=== PATIENT | male | born 1945 | race Caucasian/White ===

== ENCOUNTER 2018-11-23 00:41 | Emergency (ER) | payer MEDICARE, OTHER ==
[~2018-11-23] VITALS: Ht 170.2 cm; Wt 82.0 kg
[2018-11-23 01:14] LABS: BASOPHILS % 0.5 % (0.0-2.0); EOSINOPHILS % 1.1 % (0.0-5.0); HEMATOCRIT. 31.4 % (42.0-52.0); HEMOGLOBIN. 10.2 g/dL (14.0-18.0); LYMPHOCYTES % 38.2 % (20.0-50.0); MEAN CORPUSCULAR VOLUME 89.5 fL (80.0-94.0); MEAN PLATELET VOLUME 8.1 fl (7.4-10.4); MONOCYTES % 12.8 % (2.0-8.0); NEUTROPHILS % 47.4 % (40.0-76.0); PLATELET 227 x1000/uL (130-400); RED BLOOD CELL COUNT 3.51 mill/uL (4.7-6.1); RED CELL DISTRIBUTION WIDTH 17.3 % (11.6-14.6)
[2018-11-23 01:19] LABS: CHLORIDE 98 mEq/L (98-107)
[2018-11-23 01:21] LABS: PARTIAL THROMBOPLASTIN TIME 33.4 sec (23.4-31.0); PROTHROMBIN TIME 10.5 sec (9.6-11.0)
[2018-11-23] MEDS ORDERED: ALBUTEROL (0.083%) 2.5MG/3ML NEB HHN STA (02:19)
[2018-11-23 03:58] VITALS: BP 105/50
== END 2018-11-23 04:22 | disposition home or self-care (01) ==
LOC: ER 00:41 → CANBEDREQ 05:43
DX: J44.1 Chronic obstructive pulmonary disease with (acute) exacerbation (principal); I25.2 Old myocardial infarction; F17.200 Nicotine dependence, unspecified, uncomplicated
CPT/HCPCS: 36415; 71045; 80053; 83880; 84484; 85025; 85610; 85730; 93005; 94640; 99284; J7611

== ENCOUNTER 2019-01-18 00:05 | Inpatient (IN) | payer OTHER, MEDICAID ==
[2019-01-18] VITALS (33 sets, daily range): BP systolic 79–133; BP diastolic 39–80
[~2019-01-18] VITALS: Ht 172.7 cm; Wt 69.6 kg
[2019-01-18] MEDS ORDERED: METHYLPREDNISOLONE SOD SUCC 125 MG/2 ML VIAL IV STA (00:52)
[2019-01-18] MEDS ORDERED: ONDANSETRON HCL 4MG/2ML INJ IV STA (00:52)
[2019-01-18] MEDS ORDERED: IPRATROPIUM BROMIDE (0.02%) 0.5MG/2.5ML NEB HHN STA (00:52)
[2019-01-18] MEDS: ALBUTEROL (0.083%) 2.5MG/3ML NEB HHN SCH ×3 (01:12→01:49)
[2019-01-18 01:19] LABS: BASOPHILS % 0.5 % (0.0-2.0); EOSINOPHILS % 0.1 % (0.0-5.0); HEMATOCRIT. 31.8 % (42.0-52.0); HEMOGLOBIN. 10.2 g/dL (14.0-18.0); LYMPHOCYTES % 13.2 % (20.0-50.0); MEAN CORPUSCULAR HEMOGLOBIN 27.2 pg (28.0-32.0); MEAN CORPUSCULAR VOLUME 84.5 fL (80.0-94.0); MEAN PLATELET VOLUME 7.7 fl (7.4-10.4); MONOCYTES % 12.3 % (2.0-8.0); NEUTROPHILS % 73.9 % (40.0-76.0); PLATELET 372 x1000/uL (130-400); RED BLOOD CELL COUNT 3.77 mill/uL (4.7-6.1); RED CELL DISTRIBUTION WIDTH 16.5 % (11.6-14.6)
[2019-01-18 01:24] LABS: BG BASE EXCESS -0.8 mmol/L (-2.0-2.0); BG CARBOXYHEMOGLOBIN 1.3 % (0.5-1.5); BG FRACTION INSPIRED OXYGEN 40; BG HCO3 ACT 25.5 mmol/L (22.0-26.0); BG METHEMOGLOBIN 0.3 % (0.0-1.5); BG OXYHEMOGLOBIN 95.4 % (94.0-97.0); BG PCO2 49.4 mmHg (35.0-45.0); BG PH 7.331 (7.350-7.450); BG PO2 105.5 mmHg (75.0-100.0); BG SAMPLE SITE LEFT RADIAL; BG TOTAL HEMOGLOBIN 10.9 g/dL (12.0-18.0)
[2019-01-18 01:31] LABS: CHLORIDE 93 mEq/L (98-107)
[2019-01-18] MEDS ORDERED: CEFTRIAXONE 1 G PREMIX 50 ML IV ONE (02:30)
[2019-01-18] MEDS ORDERED: AZITHROMYCIN 500 MG in DEXT 5% WATER 250 ML IV ONE (02:30)
[2019-01-18] MEDS ORDERED: SODIUM CHLORIDE 0.9% 1000ML BAG (SEPSIS BOLUS) IV ONE (03:00)
[2019-01-18] MEDS ORDERED: NOREPINEPHRINE 4 MG in DEXT 5% WATER 250 ML IV STA (04:32)
[2019-01-18] MEDS: NOREPINEPHRINE 4MG/250ML PMX 250 ML IV PRN ×2 (05:03→05:28)
[2019-01-18] MEDS ORDERED: LORAZEPAM 0.5MG TABLET PO PRN (07:00)
[2019-01-18] MEDS ORDERED: LEVOFLOXACIN 500MG PREMIX 100 ML IV SCH (07:00)
[2019-01-18] MEDS ORDERED: DIPHENHYDRAMINE 50MG/ML VIAL IV PRN (07:00)
[2019-01-18] MEDS ORDERED: ONDANSETRON HCL 4MG/2ML INJ IV PRN (07:00)
[2019-01-18] MEDS ORDERED: MAGNESIUM/ALUMINUM HYDROXIDE/SIMETHICONE 30ML UDC PO PRN (07:00)
[2019-01-18] MEDS ORDERED: CLONIDINE 0.1MG TABLET PO PRN (07:00)
[2019-01-18] MEDS ORDERED: MORPHINE SULFATE 2 MG/ML CPJ (NOT FOR IM USE) IV PRN (07:00)
[2019-01-18] MEDS ORDERED: IPRATROPIUM/ALBUTEROL 0.5-3(2.5)MG/3ML NEB INH PRN (07:00)
[2019-01-18] MEDS ORDERED: NITROGLYCERIN 0.4MG TABLET SL SL PRN (07:00)
[2019-01-18] MEDS ORDERED: TRAMADOL 50MG TABLET PO PRN (07:00)
[2019-01-18] MEDS ORDERED: ZOLPIDEM TARTRATE 5MG TABLET PO PRN (07:00)
[2019-01-18] MEDS ORDERED: GUAIFENESIN 200MG/10ML SUGAR FREE UDC PO PRN (07:00)
[2019-01-18] MEDS ORDERED: ACETAMINOPHEN 325MG TABLET PO PRN (07:00)
[2019-01-18] MEDS ORDERED: DOCUSATE SODIUM 100MG CAPSULE PO PRN (07:00)
[2019-01-18 08:03] LABS: FOLIC ACID (FOLATE) SERUM 9.6 ng/mL (>5.38)
[2019-01-18] MEDS ORDERED: ENOXAPARIN 40MG/0.4ML SYR SUBCUT SCH (09:00)
[2019-01-18] MEDS ORDERED: METHYLPREDNISOLONE SOD SUCC 125 MG/2 ML VIAL IV SCH (09:00)
[2019-01-18] MEDS ORDERED: CEFTRIAXONE 1 G PREMIX 50 ML IV SCH (09:00)
[2019-01-18] MEDS: ASPIRIN 325MG EC TABLET PO SCH (09:48)
[2019-01-18] MEDS: GUAIFENESIN/DM 600MG/30MG ER TAB 12HR PO SCH ×2 (09:49→21:46)
[2019-01-18] MEDS: ASCORBIC ACID 500 MG TABLET PO SCH ×2 (09:49→21:46)
[2019-01-18] MEDS: FAMOTIDINE 20MG TABLET PO SCH ×2 (09:49→21:46)
[2019-01-18] MEDS: ZINC SULFATE 220 MG ( 50 ) CAPSULE PO SCH (09:49)
[2019-01-18] MEDS: SODIUM CHLORIDE 0.9% 1,000 ML IV SCH ×2 (10:46→22:27)
[2019-01-18] MEDS: LEVOFLOXACIN 500MG PREMIX 100 ML IV SCH (11:22)
[2019-01-18] MEDS: NICOTINE 14MG PATCH TD SCH (13:31)
[2019-01-18 14:44] LABS: CREATINE KINASE MB FRACTION 13.3 ng/mL (0.5-3.6)
[2019-01-18 19:22] LABS: INR 1.1; PROTHROMBIN TIME 11.4 sec (9.6-11.0)
[2019-01-18] MEDS: IPRATROPIUM/ALBUTEROL 0.5-3(2.5)MG/3ML NEB HHN SCH (21:33)
[2019-01-18] MEDS: BUDESONIDE 0.5MG/2ML NEB HHN SCH (21:33)
[2019-01-18] MEDS: ENOXAPARIN 80MG/0.8ML SYR SUBCUT SCH (21:47)
[2019-01-19] VITALS (24 sets, daily range): BP systolic 91–136; BP diastolic 48–93
[2019-01-19] MEDS: IPRATROPIUM/ALBUTEROL 0.5-3(2.5)MG/3ML NEB HHN SCH ×8 (00:17→21:17)
[2019-01-19 00:30] LABS: CREATINE KINASE MB FRACTION 9.7 ng/mL (0.5-3.6)
[2019-01-19 02:18] LABS: CLARITY URINE CLEAR (CLEAR); COLOR URINE YELLOW (YELLOW); KETONES URINE NEGATIVE (NEGATIVE); LEUKOCYTE ESTERASE URINE NEGATIVE (NEGATIVE); NITRITE URINE NEGATIVE (NEGATIVE); OCCULT BLOOD URINE NEGATIVE (NEGATIVE); PROTEIN URINE 1+ (NEGATIVE); SPECIFIC GRAVITY URINE 1.027 (1.005-1.030)
[2019-01-19 02:31] LABS: *BARBITURATES SCREEN URINE NEGATIVE (NEGATIVE)
[2019-01-19 02:32] LABS: *AMPHETAMINES SCREEN URINE NEGATIVE (NEGATIVE); *BENZODIAZEPINES SCREEN URINE NEGATIVE (NEGATIVE); *COCAINE SCREEN URINE NEGATIVE (NEGATIVE); CANNABINOID URINE SCREEN NEGATIVE (NEGATIVE); METHADONE URINE SCREEN NEGATIVE (NEGATIVE); OPIATES URINE SCREEN PRESUMTIVE POSITIVE (NEGATIVE)
[2019-01-19 02:33] LABS: PHENCYCLIDINE URINE SCREEN NEGATIVE (NEGATIVE)
[2019-01-19] MEDS: CEFTRIAXONE 1 G PREMIX 50 ML IV SCH (05:15)
[2019-01-19 07:40] LABS: HEMATOCRIT. 27.8 % (42.0-52.0); HEMOGLOBIN. 8.9 g/dL (14.0-18.0); MEAN CORPUSCULAR HEMOGLOBIN 27.1 pg (28.0-32.0); MEAN CORPUSCULAR VOLUME 84.7 fL (80.0-94.0); MEAN PLATELET VOLUME 8.2 fl (7.4-10.4); PLATELET 338 x1000/uL (130-400); RED BLOOD CELL COUNT 3.29 mill/uL (4.7-6.1); RED CELL DISTRIBUTION WIDTH 16.8 % (11.6-14.6)
[2019-01-19 07:44] LABS: CHLORIDE 97 mEq/L (98-107)
[2019-01-19] MEDS: FAMOTIDINE 20MG TABLET PO SCH ×2 (08:55→20:25)
[2019-01-19] MEDS: ASPIRIN 325MG EC TABLET PO SCH (08:55)
[2019-01-19] MEDS: GUAIFENESIN/DM 600MG/30MG ER TAB 12HR PO SCH ×2 (08:55→20:25)
[2019-01-19] MEDS: PREDNISONE 20MG TABLET PO SCH (08:56)
[2019-01-19] MEDS: ASCORBIC ACID 500 MG TABLET PO SCH ×2 (08:56→20:25)
[2019-01-19] MEDS: ENOXAPARIN 80MG/0.8ML SYR SUBCUT SCH (08:57)
[2019-01-19] MEDS: NICOTINE 14MG PATCH TD SCH (08:57)
[2019-01-19] MEDS: ZINC SULFATE 220 MG ( 50 ) CAPSULE PO SCH (09:06)
[2019-01-19] MEDS: BUDESONIDE 0.5MG/2ML NEB HHN SCH ×2 (09:15→21:18)
[2019-01-19 10:24] LABS: PLATELET ESTIMATE NORMAL
[2019-01-19] MEDS: LEVOFLOXACIN 500MG PREMIX 100 ML IV SCH (11:07)
[2019-01-19 11:28] LABS: TOTAL IRON BINDING CAPACITY 188 ug/dL (250-450)
[2019-01-19] MEDS: SODIUM CHLORIDE 0.9% 1,000 ML IV SCH (17:52)
[2019-01-19] MEDS: ENOXAPARIN 60MG/0.6ML SYR SUBCUT SCH (20:26)
[2019-01-19] MEDS ORDERED: ATOR10TA PO (23:43)
[2019-01-19] MEDS ORDERED: ASPI-1393 PO (23:43)
[2019-01-20] VITALS (21 sets, daily range): BP systolic 110–143; BP diastolic 53–96
[2019-01-20] MEDS: IPRATROPIUM/ALBUTEROL 0.5-3(2.5)MG/3ML NEB HHN SCH ×4 (00:50→16:42)
[2019-01-20] MEDS: SODIUM CHLORIDE 0.9% 1,000 ML IV SCH ×2 (02:00→14:17)
[2019-01-20] MEDS: CEFTRIAXONE 1 G PREMIX 50 ML IV SCH (05:14)
[2019-01-20 06:05] LABS: BASOPHILS % 0.2 % (0.0-2.0); HEMOGLOBIN. 9.2 g/dL (14.0-18.0); LYMPHOCYTES % 8.9 % (20.0-50.0); MEAN CORPUSCULAR HEMOGLOBIN 27.1 pg (28.0-32.0); MEAN CORPUSCULAR VOLUME 85.1 fL (80.0-94.0); MEAN PLATELET VOLUME 7.8 fl (7.4-10.4); MONOCYTES % 11.9 % (2.0-8.0); PLATELET 338 x1000/uL (130-400); RED BLOOD CELL COUNT 3.41 mill/uL (4.7-6.1)
[2019-01-20 06:07] LABS: CHLORIDE 99 mEq/L (98-107)
[2019-01-20 06:17] LABS: CREATINE KINASE 36 IU/L (39-308)
[2019-01-20 06:20] LABS: CREATINE KINASE MB FRACTION 3.3 ng/mL (0.5-3.6)
[2019-01-20] MEDS: BUDESONIDE 0.5MG/2ML NEB HHN SCH (07:40)
[2019-01-20] MEDS: ZINC SULFATE 220 MG ( 50 ) CAPSULE PO SCH (08:34)
[2019-01-20] MEDS: GUAIFENESIN/DM 600MG/30MG ER TAB 12HR PO SCH (08:34)
[2019-01-20] MEDS: ASCORBIC ACID 500 MG TABLET PO SCH (08:34)
[2019-01-20] MEDS: ENOXAPARIN 60MG/0.6ML SYR SUBCUT SCH (08:34)
[2019-01-20] MEDS: FAMOTIDINE 20MG TABLET PO SCH (08:34)
[2019-01-20] MEDS: PREDNISONE 20MG TABLET PO SCH (08:34)
[2019-01-20] MEDS: NICOTINE 14MG PATCH TD SCH (08:34)
[2019-01-20] MEDS ORDERED: ASPIRIN 81MG EC TABLET PO SCH (09:00)
[2019-01-20] MEDS: LEVOFLOXACIN 500MG PREMIX 100 ML IV SCH (10:17)
[2019-01-21] MEDS ORDERED: LEVOFLOXACIN 500MG TABLET PO SCH (11:00)
== END 2019-01-20 19:55 | disposition short-term general hospital (02) | DRG 871 ==
LOC: ER 00:05 → CVICU 04:51 → EDBEDREQ 05:00 → EDBEDREQSVC 05:00 → EDBEDREQTM 05:00 → ENRESERV 07:01
PROVIDERS: ADMIT Internal Medicine; ATTEND Internal Medicine
DX: A41.9 Sepsis, unspecified organism (principal); E43 Unspecified severe protein-calorie malnutrition; G92 Toxic encephalopathy; I21.4 Non-ST elevation (NSTEMI) myocardial infarction; J69.0 Pneumonitis due to inhalation of food and vomit; J96.00 Acute respiratory failure, unspecified whether with hypoxia or hypercapnia; E87.0 Hyperosmolality and hypernatremia; E87.1 Hypo-osmolality and hyponatremia; I50.20 Unspecified systolic (congestive) heart failure; J44.1 Chronic obstructive pulmonary disease with (acute) exacerbation; D50.9 Iron deficiency anemia, unspecified; D63.8 Anemia in other chronic diseases classified elsewhere; E78.00 Pure hypercholesterolemia, unspecified; E78.5 Hyperlipidemia, unspecified; E83.51 Hypocalcemia; E83.52 Hypercalcemia; F17.210 Nicotine dependence, cigarettes, uncomplicated; I25.10 Atherosclerotic heart disease of native coronary artery without angina pectoris; I35.0 Nonrheumatic aortic (valve) stenosis; I49.3 Ventricular premature depolarization; R47.02 Dysphasia; Z51.5 Encounter for palliative care; Z86.79 Personal history of other diseases of the circulatory system; I25.2 Old myocardial infarction
CPT/HCPCS: 36415; 36600; 71045; 80048; 80061; 80305; 82375; 82550; 82553; 82607; 82746; 82805; 83036; 83540; 83550; 83605; 83735; 83880; 84443; 84484; 85379; 92610; 93005; 93306; 93970; 94640; 94644; 96374; 99285; J0456; J0696; J1650; J1956; J2405; J2930; J3490; J7030; J7060; J7512; J7611; J7620; J7626

== ENCOUNTER 2019-06-20 17:56 | Emergency (ER) | payer OTHER, MEDICAID ==
[~2019-06-20] VITALS: Ht 172.7 cm; Wt 64.0 kg
[~2019-06-20 17:56] MED LIST: ASPI-1393 PO; ATOR10TA PO
[2019-06-20] MEDS ORDERED: SODIUM CHLORIDE 0.9% 1,000 ML IV ONE (19:57)
[2019-06-20 21:03] LABS: BASOPHILS % 0.5 % (0.0-2.0); EOSINOPHILS % 0.5 % (0.0-5.0); HEMATOCRIT. 28.5 % (42.0-52.0); HEMOGLOBIN. 9.2 g/dL (14.0-18.0); LYMPHOCYTES % 20.7 % (20.0-50.0); MEAN CORPUSCULAR HEMOGLOBIN 27.2 pg (28.0-32.0); MEAN CORPUSCULAR VOLUME 84.6 fL (80.0-94.0); MONOCYTES % 8.6 % (2.0-8.0); NEUTROPHILS % 69.7 % (40.0-76.0); PLATELET 178 x1000/uL (130-400); RED BLOOD CELL COUNT 3.37 mill/uL (4.7-6.1); RED CELL DISTRIBUTION WIDTH 16.6 % (11.6-14.6)
[2019-06-20 21:10] LABS: INR 1.1; PARTIAL THROMBOPLASTIN TIME 32.9 sec (23.4-31.0); PROTHROMBIN TIME 11.4 sec (9.6-11.0)
[2019-06-20 21:12] LABS: CHLORIDE 100 mEq/L (98-107)
[2019-06-20] MEDS ORDERED: IOHEXOL-350 100 ML BOTTLE ONE (23:32)
[2019-06-21 01:47] VITALS: BP 102/54
== END 2019-06-21 01:51 | disposition home or self-care (01) ==
LOC: ER 17:56
DX: R10.9 Unspecified abdominal pain (principal); J44.9 Chronic obstructive pulmonary disease, unspecified; I25.2 Old myocardial infarction; Z98.890 Other specified postprocedural states; Z79.82 Long term (current) use of aspirin
CPT/HCPCS: 36415; 71045; 71275; 74174; 80053; 83690; 83880; 84484; 85025; 85610; 85730; 93005; 99284; J7030; Q9967